=== PATIENT | female | born 1940 | race Caucasian/White ===

== ENCOUNTER 2017-06-29 13:25 | Emergency (ER) | payer SELFPAY, OTHER ==
[2017-06-29 14:40] LABS: ADD MAN DIFF? NO
[2017-06-29 14:43] LABS: ABNORMAL IP MESSAGE 1; HEMATOCRIT 30.8 % (37.0-47.0); HEMOGLOBIN 10.8 g/dl (12.0-16.0); MEAN CORPUSCULAR HEMOGLOBIN 28.5 pg (29.0-33.0); MEAN CORPUSCULAR HGB CONC 35.1 g/dl (32.0-37.0); MEAN CORPUSCULAR VOLUME 81.3 fl (82.0-101.0); PLATELET COUNT 128 10^3/UL (140-415); RED BLOOD COUNT 3.79 10^6/ul (4.20-5.40); RED CELL DISTRIBUTION WIDTH 13.3 % (11.5-14.5)
[2017-06-29 14:43] LABS: WHITE BLOOD COUNT 6.8 10^3/ul (4.8-10.8)
[2017-06-29] MEDS: SODIUM CHLORIDE 0.9% 1L BAG IV* (14:47)
[2017-06-29] MEDS: CEFEPIME 2GM/50 ML (PMX) 50 ML IVPB (14:48)
[2017-06-29] MEDS: morphine 2 MG INJ IV (14:48)
[2017-06-29] MEDS: ONDANSETRON 4 MG INJ IV (14:48)
[2017-06-29 15:03] LABS: PARTIAL THROMBOPLASTIN TIME 26.5 Sec (25.0-35.0)
[2017-06-29 15:06] LABS: LACTIC ACID 1.7 mmol/L (0.5-2.0)
[2017-06-29 15:07] LABS: ALANINE AMINOTRANSFERASE 28 IU/L (13-69); ALBUMIN 4.3 g/dl (3.3-4.9); ALBUMIN/GLOBULIN RATIO 1.65; ALKALINE PHOSPHATASE 52 IU/L (42-121); ANION GAP 22 (8-16); ASPARTATE AMINO TRANSFERASE 20 IU/L (15-46); BILIRUBIN,INDIRECT 0.3 mg/dl (0-1.1); BILIRUBIN,TOTAL 0.3 mg/dl (0.2-1.3); BLOOD UREA NITROGEN 26 mg/dl (7-20); CALCIUM 8.9 mg/dl (8.4-10.2); CARBON DIOXIDE 23 mmol/L (21-31); CHLORIDE 99 mmol/L (97-110); CREATININE 1.21 mg/dl (0.44-1.00); GLUCOSE 106 mg/dl (70-220); INR 1.04; PROTIME 13.7 Sec (11.9-14.9); PT RATIO 1.1; SODIUM 140 mmol/L (135-144); TOTAL PROTEIN 6.9 g/dl (6.1-8.1)
[2017-06-29 15:15] LABS: POSITIVE DIFF @See below
[2017-06-29 15:23] LABS: TROPONIN-I < 0.012 ng/ml (0.00-0.12)
[2017-06-29] MEDS: ACETAMINOPHEN 325 MG TAB PO (15:40)
[2017-06-29 15:47] LABS: BAND NEUTROPHILS #M 0.8 10^3/ul (0.0-0.6); BAND NEUTROPHILS % (M) 13 % (0-4); LYMPHOCYTES #M 0.4 10^3/ul (0.8-2.9); LYMPHOCYTES % (M) 6 % (15-51); MICROCYTOSIS 1+ (0-0); MONOCYTE #M 0.4 10^3/ul (0.3-0.9); MONOCYTES % (M) 6 % (0-11); PLATELET ESTIMATE NORMAL; SEG NEUT #M 5.2 10^3/ul (1.7-7.5); SEGMENTED NEUTROPHILS (M) % 75 % (39-77); SMUDGE%M 2 % (0-0)
[2017-06-29] MEDS: OSELTAMIVIR 75 MG CAP PO (15:54)
[2017-06-29] MEDS ORDERED: ONDANSETRON 4 MG INJ IV (16:00)
[2017-06-29] MEDS ORDERED: ACETAMINOPHEN 325 MG TAB PO (16:00)
== END 2017-06-29 17:00 | disposition left against medical advice (07) ==
LOC: E/R 13:25
DX: A41.9 Sepsis, unspecified organism (principal); J10.1 Influenza due to other identified influenza virus with other respiratory manifestations; J20.9 Acute bronchitis, unspecified; D50.9 Iron deficiency anemia, unspecified; I10 Essential (primary) hypertension; E11.9 Type 2 diabetes mellitus without complications; Z79.84 Long term (current) use of oral hypoglycemic drugs
CPT/HCPCS: 36415; 71045; 80053; 83605; 84484; 85025; 85610; 85730; 87040; 87400; 93005; 96374; 96375; 99291-25